=== PATIENT | male | born 1995 | race Two or more races ===

== ENCOUNTER 2022-01-31 19:59 | Emergency (ER) | payer MEDICAID ==
[~2022-01-31] VITALS: Ht 167.6 cm; Wt 63.5 kg
[2022-01-31] MEDS ORDERED: LORAZEPAM 1 MG TABLET PO ONE (21:00)
[2022-01-31 21:32] VITALS: BP 139/92
[2022-01-31] MEDS ORDERED: LORAZEPAM 1 MG TABLET ONE (21:52)
--- NOTE | 2022-01-31 21:58 | NUR ---
Patient discharged to home in stable condition. Written and verbal after care instructions given. Patient verbalizes understanding of instruction.
== END 2022-01-31 22:00 | disposition home or self-care (01) ==
LOC: ER 20:05
DX: F41.9 Anxiety disorder, unspecified (principal)